=== PATIENT | female | born 1965 | race African-American/Black ===

== ENCOUNTER 2024-12-04 12:47 | Inpatient (IN) | payer OTHER ==
[~2024-12-04] VITALS: Ht 172.7 cm; Wt 103.4 kg
[2024-12-04] MEDS ORDERED: DEXAMETHASONE 2MG TABLET PO ONE (13:15)
[2024-12-04 13:20] VITALS: PULSE 100; RESP 26; O2SAT 99
[2024-12-04] MEDS: DEXAMETHASONE 4MG TABLET PO NR (14:24)
[2024-12-04] MEDS: IPRATROPIUM/ALBUTEROL 0.5-3(2.5)MG/3ML NEB HHN STA (14:34)
[2024-12-04 14:44] LABS: HEMATOCRIT. 37.5 % (36.0-48.0); HEMOGLOBIN. 12.2 g/dL (12.0-16.0); MEAN CORPUSCULAR HEMOGLOBIN 31.5 pg (28.0-32.0); MEAN CORPUSCULAR HGB CONC 32.5 g/dL (31.0-37.0); MEAN PLATELET VOLUME 9.2 fl (7.4-10.4); PLATELET 221 x1000/uL (130-400); RED BLOOD CELL COUNT 3.86 mill/uL (4.2-5.4); WHITE BLOOD COUNT 8.3 x1000/uL (4.5-11.0)
[2024-12-04 14:48] LABS: CHLORIDE 110 mEq/L (98-107); SODIUM 145 mEq/L (136-145)
[2024-12-04 14:49] LABS: CALCIUM 9.3 mg/dL (8.7-10.4); CARBON DIOXIDE 26 mEq/L (21-32)
[2024-12-04 14:54] LABS: CREATININE 0.7 mg/dL (0.6-1.0); GLUCOSE 149 mg/dL (70-105); UREA NITROGEN BLOOD 9 mg/dL (9-23)
[2024-12-04 14:58] LABS: DIFFERENTIAL COMMENT 1
[2024-12-04 15:01] LABS: TROPONIN I HIGH SENSITIVITY 61 ng/L (3.0-34)
[2024-12-04] MEDS: ACETAMINOPHEN 500MG TABLET PO NR (15:22)
[2024-12-04 15:50] LABS: GIANT PLATELETS 1+; PLATELET ESTIMATE NORMAL
[2024-12-04] MEDS: FUROSEMIDE 40MG/4ML VIAL IVP SCH (19:42)
[2024-12-04] MEDS ORDERED: ONDANSETRON HCL 4MG/2ML INJ IV PRN (20:15)
[2024-12-04] MEDS ORDERED: MAGNESIUM/ALUMINUM HYDROXIDE/SIMETHICONE 30ML UDC PO PRN (20:15)
[2024-12-04] MEDS ORDERED: DOCUSATE SODIUM 100MG CAPSULE PO PRN (20:15)
[2024-12-04] MEDS ORDERED: DEXTROSE 50% WATER 50ML SYRINGE IV PRN (20:15)
[2024-12-04] MEDS ORDERED: IPRATROPIUM/ALBUTEROL 0.5-3(2.5)MG/3ML NEB HHN PRN (20:15)
[2024-12-04] MEDS ORDERED: METF-1150 MT (21:15)
[2024-12-04] MEDS ORDERED: ATOR20TA65 PO (21:15)
[2024-12-04] MEDS ORDERED: LISI-649 MT (21:15)
[2024-12-04] MEDS ORDERED: NEOAPJ IM (21:15)
[2024-12-04] MEDS: ACETAMINOPHEN 325MG TABLET PO PRN (21:25)
[2024-12-04] MEDS: PANTOPRAZOLE SODIUM 40 MG/VIAL IV SCH (21:26)
[2024-12-04] MEDS: BLOOD SUGAR DIAGNOSTIC STRIP TEST SCH (21:51)
[2024-12-04] MEDS: INSULIN LISPRO 100 UNITS/ML SUBCUT SCH (21:51)
[2024-12-04 22:12] VITALS: BP 165/98; PULSE 78; RESP 19; TEMP 36.5292
[2024-12-05] VITALS (7 sets, daily range): BP systolic 138–149; BP diastolic 83–89; PULSE 88–101; RESP 18–22; TEMP 37.11408; O2SAT 95–98
[2024-12-05] MEDS: IPRATROPIUM/ALBUTEROL 0.5-3(2.5)MG/3ML NEB HHN SCH (00:56)
[2024-12-05] MEDS: METHYLPREDNISOLONE SOD SUCC 125MG/2ML (ACT-O-VIAL) IV SCH (01:22)
[2024-12-05 02:00] LABS: CREATINE KINASE MB FRACTION 2.5 ng/mL (0.5-3.6)
[2024-12-05 02:53] LABS: TROPONIN I HIGH SENSITIVITY 35 ng/L (3.0-34)
[2024-12-05] MEDS: HYDRALAZINE 20MG/ML VIAL IV PRN (03:52)
[2024-12-05 08:09] LABS: THYROID STIMULATING HORMONE 0.25 uIU/mL (0.55-4.78)
[2024-12-05 08:11] LABS: BASOPHILS % 0.2 % (0.0-2.0); HEMATOCRIT. 37.7 % (36.0-48.0); HEMOGLOBIN. 12.4 g/dL (12.0-16.0); LYMPHOCYTES % 13.6 % (20.0-50.0); MEAN CORPUSCULAR HEMOGLOBIN 31.4 pg (28.0-32.0); MEAN CORPUSCULAR VOLUME 95.3 fL (81.0-99.0); MEAN PLATELET VOLUME 10.6 fl (7.4-10.4); MONOCYTES % 0.9 % (2.0-8.0); NEUTROPHILS % 85.3 % (40.0-76.0); PLATELET 210 x1000/uL (130-400); RED BLOOD CELL COUNT 3.96 mill/uL (4.2-5.4); WHITE BLOOD COUNT 6.8 x1000/uL (4.5-11.0)
[2024-12-05] MEDS: FUROSEMIDE 40MG/4ML VIAL IV SCH (09:04)
[2024-12-05] MEDS: LISINOPRIL 10MG TABLET PO SCH (09:05)
[2024-12-05 09:29] LABS: DIFFERENTIAL COMMENT 1
[2024-12-05] MEDS: ENOXAPARIN 40MG/0.4ML SYR SUBCUT SCH (21:23)
[2024-12-05] MEDS: ATORVASTATIN CALCIUM 40MG TABLET PO SCH (21:24)
== END 2024-12-05 23:10 | disposition short-term general hospital (02) | DRG 202 ==
LOC: ER 12:47 → 8WST 16:44 → EDBEDREQTM 16:48 → EDBEDREQ 16:48
PROVIDERS: ADMIT Hospitalist; ATTEND Hospitalist
DX: J45.901 Unspecified asthma with (acute) exacerbation (principal); I21.A1 Myocardial infarction type 2; E87.20 Acidosis, unspecified; I50.9 Heart failure, unspecified; I11.0 Hypertensive heart disease with heart failure; Z20.822 Contact with and (suspected) exposure to COVID-19; E11.65 Type 2 diabetes mellitus with hyperglycemia; I87.8 Other specified disorders of veins; K21.9 Gastro-esophageal reflux disease without esophagitis; Z87.891 Personal history of nicotine dependence; Z79.899 Other long term (current) drug therapy
CPT/HCPCS: 36415; 71045; 80048; 80061; 82553; 82962; 83036; 83605; 83880; 84145; 84443; 84484; 85025; 87420; 87426; 87804; 93005; 93970; 94070; 94640; 94760; 97161; 97166; 99285; J0360; J1650; J1815; J1940; J2470; J2919; J8540